=== PATIENT | male | born 1940 | race Caucasian/White ===

== ENCOUNTER 2023-01-15 14:07 | Emergency (ER) | payer OTHER, SELFPAY ==
[2023-01-15] VITALS (11 sets, daily range): BP systolic 126–143; BP diastolic 65–100; PULSE 79–209; RESP 16–20; TEMP 36.8; O2SAT 92–99
--- NOTE | 2023-01-15 14:26 | DI.RAD.S_ITS ---
PROCEDURE: XR CHEST 1V INDICATIONS: altered mental status TECHNIQUE: One view of the chest was acquired. COMPARISON: [facility], CT, CT ABDOMEN PELVIS WITHOUT CONTRAST, 07/14/2020, 15:11. [facility], CR, XR CHEST 1 VIEW, 07/12/2020, 18:32. FINDINGS: Surgical changes and devices: None. Lungs and pleura: No acute airspace opacities. No pleural effusion or pneumothorax. Mediastinum: There is a large mediastinal mass projected over the cardiac shadow. Bones and chest wall: No suspicious bony lesions. Overlying soft tissues appear unremarkable. Radiodense material is visualized projected over the esophagus. However, it is unclear whether this is superimposed on the patient or within the mediastinum. IMPRESSION: 1. Large mediastinal mass. Findings raise the suspicion for a large hiatal hernia; however a pulmonary mass or a mediastinal mass could also cause this appearance. CT of the chest with contrast is recommended to further characterize this finding. 2. Questionable radiodense material projected over the mid mediastinum. Dictated by: Kelin Shankar M.D. on 01/15/2023 at 15:14 Approved by: Kelin Shankar M.D. on 01/15/2023 at 15:17
--- NOTE | 2023-01-15 14:31 | DI.CT.S_ITS ---
PROCEDURE: CT HEAD/BRAIN WO CON INDICATIONS: Altered mental status TECHNIQUE: Noncontrast 4.5 mm thick angled axial sections acquired from the foramen magnum to the vertex, with coronal and sagittal reformats. For radiation dose reduction, the following was used: automated exposure control, adjustment of mA and/or kV according to patient size. COMPARISON: [facility], CT, CT HEAD WITHOUT CONTRAST, 07/12/2020, 17:48. FINDINGS: Image quality: Excellent. CSF spaces: Basal cisterns are patent. No extra-axial fluid collections. The ventricles are symmetric in size and shape. Brain: No intracranial bleeds or masses. There is cerebral volume loss for age, with resultant ventricular and sulcal prominence. There are periventricular and deep white matter chronic small vessel ischemic changes. There is intracranial internal carotid artery atherosclerosis. Skull and face: Calvarium and visualized facial bones appear intact, without suspicious lesions. Sinuses: Visualized sinuses and mastoids are clear. IMPRESSION: Age related microvascular atherosclerotic change is relatively prominent in this patient, also previously present 07/12/20. No intracranial hemorrhage, mass or definite superimposed acute ischemic injury. Dictated by: Celio Bishop M.D. on 01/15/2023 at 15:24 Approved by: Celio Bishop M.D. on 01/15/2023 at 15:25
[2023-01-15 14:36] LABS: Add Manual Diff / Slide Review NO; Basophils Absolute Auto 100 /uL (0-100); Basophils Percent Auto 0.5 % (0-2); Eosinophils Absolute Auto 100 /uL (0-450); Hematocrit 31.7 % (41-53); Hemoglobin 10.5 g/dL (13.5-17.5); Lymphocytes Absolute Auto 2000 /uL (1100-4500); Lymphocytes Percent Auto 19.5 % (25-40); Mean Corpuscular Hemoglobin 29.8 PG (26-34); Mean Corpuscular Volume 90.2 fL (80-100); Monocytes Absolute Auto 1100 /uL (0-900); Monocytes Percent Auto 10.6 % (3-14); Neutrophils Absolute Auto 6800 /uL (1500-7000); Neutrophils Percent Auto 68.4 % (50-75); Platelet Count 300 X10^3/uL (150-400); Red Blood Cell Count 3.51 X10^6/uL (4.5-5.9)
[2023-01-15 14:49] LABS: Alanine Aminotransferase 15 IU/L (<50); Albumin 3.5 g/dL (3.5-5.0); Albumin Globulin Ratio 0.6 (1.0-2.8); Alkaline Phosphatase 67 U/L (38-126); Aspartate Aminotransferase 29 IU/L (17-59); BUN Creatinine Ratio 23.4 (6-22); Bilirubin Total 0.8 mg/dL (0.2-1.3); Blood Urea Nitrogen 22 mg/dL (9-20); Calcium 12.2 mg/dL (8.4-10.2); Carbon Dioxide 31 mmol/L (22-32); Chloride 100 mmol/L (98-107); Estimated Glomerular Filt Rate > 60 mL/min (>60); Globulin 5.5 g/dL (1.7-4.1); Glucose 107 mg/dL (80-110); Potassium 4.7 mmol/L (3.4-5.1); Sodium 133 mmol/L (137-145)
[2023-01-15 14:50] LABS: Ethanol (ETOH) < 10 mg/dL; HEMOLYSIS 57 (0-50)
--- NOTE | 2023-01-15 15:01 | ED_ITS ---
HPI - Neuro Symptoms/Deficit General Chief Complaint: Neuro Symptoms/Deficit Stated Complaint: cough/cognitive decline/Fell T-1 Time Seen by Provider: 01/15/23 14:30 Source: patient and family Mode of arrival: Wheelchair Limitations: no limitations History of Present Illness HPI Narrative: Patient is an 82-year-old male. Arrives in the emergency department today for evaluation of cough and cognitive decline. He was with family. Apparently over the past several weeks/months the patient has had worsening cognitive decline. They have noticed this for several months however 1-1/2 months ago things seemed to get somewhat worse and then leveled off and then approximately 5 days ago the decline seem to worsen again. He now is fairly confused. He did fall yesterday without apparent injury. He takes no medications. No diagnosed medical problems. Does not see a primary care doctor. Here in the emergency department the patient has no complaints. Family states he is also had a cough for the past several days/week. No fevers. Has nonproductive cough. On Anticoagulants: No Review of Systems Review of Systems Narrative: Patient has no specific complaints Respiratory Respiratory: Reports system reviewed and no additional complaints, except as documented Neurologic Neurologic: Reports system reviewed and no additional complaints, except as documented Hematologic/Lymphatic On Anticoagulants: No Patient History Social History Smoking Status: Never smoker Smoking Status: Never smoker Exam Initial Vital Signs Initial Vital Signs: Vital Signs Temperature 98.2 F 01/15/23 14:20 Pulse Rate 79 01/15/23 14:20 Respiratory Rate 16 01/15/23 14:20 Blood Pressure 126/65 01/15/23 14:20 Pulse Oximetry 97 01/15/23 14:20 Oxygen Delivery Method Room Air 01/15/23 14:20 HENNY Head: normal to inspection and normocephalic Resp Effort & Inspection: normal respiratory effort Auscultation: clear to auscultation bilaterally Cardio Rate: regular rate Rhythm: regular rhythm GI Inspection: non-distended Neuro Other: Patient is oriented to person but does not know year or month or location. He does follow commands. Strength is equal bilateral. Extrem General: capillary refill normal Course Orders Ordered: ED Orders 01/15/23 14:25 Complete Blood Count AUTO DIFF Stat Comprehensive Metabolic Panel Stat Ethanol (ETOH) Stat 01/15/23 14:26 XR chest 1V Stat 01/15/23 14:31 CT head/brain wo con Stat 01/15/23 14:41 EKG-12 Lead Stat 01/15/23 14:45 Consult to [employer] - [employer] Operator Stat 01/15/23 15:41 CT chest w con Stat 01/15/23 16:30 Urine Culture Stat Urine Microscopic Stat Discontinued Medications Lorazepam (Lorazepam 0.5 Mg Tablet) 0.5 mg PO NOW ONE Stop: 01/15/23 16:54 Last Admin: 01/15/23 17:02 Dose: 0.5 mg Documented By: ORTIZ Vital Signs Vital signs: Vital Signs - 8 hr 01/15/23 14:20 01/15/23 14:36 01/15/23 14:37 Temperature 98.2 F Pulse Rate 79 95 H Respiratory Rate 16 20 Blood Pressure 126/65 129/72 Pulse Oximetry 97 94 Oxygen Delivery Method Room Air Room Air 01/15/23 14:37 01/15/23 15:09 01/15/23 15:30 Temperature Pulse Rate 80 98 H 110 H Respiratory Rate Blood Pressure Pulse Oximetry 97 94 99 Oxygen Delivery Method 01/15/23 15:48 01/15/23 16:01 01/15/23 16:02 Temperature Pulse Rate 156 H 119 H 108 H Respiratory Rate Blood Pressure Pulse Oximetry 99 Oxygen Delivery Method Room Air 01/15/23 16:02 01/15/23 16:10 01/15/23 16:10 Temperature Pulse Rate 162 H 120 H Respiratory Rate Blood Pressure 139/89 133/84 Pulse Oximetry Oxygen Delivery Method 01/15/23 16:30 01/15/23 16:31 01/15/23 16:31 Temperature Pulse Rate 119 H 209 H Respiratory Rate Blood Pressure 143/100 H Pulse Oximetry 92 95 Oxygen Delivery Method Room Air MDM - Neuro Symptoms/Deficit Lab Data Attestation: I reviewed the patient's lab results. 01/15/23 14:25 01/15/23 14:25 Labs: Lab Results 01/15/23 01/15/23 Range/Units 14:25 16:30 WBC 10.0 (4.5-11.0) X10^3/uL RBC 3.51 L (4.5-5.9) X10^6/uL Hgb 10.5 L (13.5-17.5) g/dL Hct 31.7 L (41-53) % MCV 90.2 (80-100) fL MCH 29.8 (26-34) PG MCHC 33.0 (30-36) % RDW 14.0 (11.6-14.8) % Plt Count 300 (150-400) X10^3/uL Neut % (Auto) 68.4 (50-75) % Lymph % (Auto) 19.5 L (25-40) % [place]lier % (Auto) 10.6 (3-14) % Eos % (Auto) 1.0 L (2-4) % Baso % (Auto) 0.5 (0-2) % Neut # (Auto) 6800 (6087-4972) /uL Lymph # (Auto) 2000 (5998-8006) /uL Collier # (Auto) 1100 H (0-900) /uL Eos # (Auto) 100 (0-450) /uL Baso # (Auto) 100 (0-100) /uL Sodium 133 L (137-145) mmol/L Potassium 4.7 (3.4-5.1) mmol/L Chloride 100 (98-107) mmol/L Carbon Dioxide 31 (22-32) mmol/L BUN 22 H (9-20) mg/dL Creatinine 0.94 (0.66-1.25) mg/dL Estimated GFR > 60 (>60) mL/min BUN/Creatinine Ratio 23.4 H (6-22) Glucose 107 (80-110) mg/dL Calcium 12.2 H (8.4-10.2) mg/dL Total Bilirubin 0.8 (0.2-1.3) mg/dL AST 29 (17-59) IU/L ALT 15 (<50) IU/L Alkaline Phosphatase 67 (38-126) U/L Total Protein 9.0 H (6.3-8.2) g/dL Albumin 3.5 (3.5-5.0) g/dL Globulin 5.5 H (1.7-4.1) g/dL Albumin/Globulin Ratio 0.6 L (1.0-2.8) Urine RBC 0-1/hpf (0-5/HPF) Urine WBC 0-1/hpf (0-5/HPF) Ur Squamous Epith Cells None seen (0-5/HPF) Amorphous Sediment 1+ Urine Bacteria Few (2-10) H (None) Ethyl Alcohol < 10 ( - 10) mg/dL Urine Dip Bedside Urine Glucose Negative Bedside Urine Bilirubin - Negative Urine Specific [place] 1.015 Bedside Urine Occult Blood +/- Bedside Urine pH 6.5 Bedside Urine Protein - Negative Bedside Urine Urobilinogen - Negative Bedside Urine Nitrite - Negative Bedside Urine Leukocytes - Negative Esterase Imaging Data Chest x-ray: Radiologist's Impression: PROCEDURE: XR CHEST 1V INDICATIONS: altered mental status TECHNIQUE: One view of the chest was acquired. COMPARISON: [facility], CT, CT ABDOMEN PELVIS WITHOUT CONTRAST, 07/14/2020, 15:11. [facility], CR, XR CHEST 1 VIEW, 07/12/2020, 18:32. FINDINGS: Surgical changes and devices: None. Lungs and pleura: No acute airspace opacities. No pleural effusion or pneumothorax. Mediastinum: There is a large mediastinal mass projected over the cardiac shadow. Bones and chest wall: No suspicious bony lesions. Overlying soft tissues appear unremarkable. Radiodense material is visualized projected over the esophagus. However, it is unclear whether this is superimposed on the patient or within the mediastinum. IMPRESSION: 1. Large mediastinal mass. Findings raise the suspicion for a large hiatal hernia; however a pulmonary mass or a mediastinal mass could also cause this appearance. CT of the chest with contrast is recommended to further characterize this finding. 2. Questionable radiodense material projected over the mid mediastinum CT scan - head: Radiologist's Impression: PROCEDURE: CT HEAD/BRAIN WO CON INDICATIONS: Altered mental status TECHNIQUE: Noncontrast 4.5 mm thick angled axial sections acquired from the foramen magnum to the vertex, with coronal and sagittal reformats. For radiation dose reduction, the following was used: automated exposure control, adjustment of mA and/or kV according to patient size. COMPARISON: [facility], CT, CT HEAD WITHOUT CONTRAST, 07/12/2020, 17:48. FINDINGS: Image quality: Excellent. CSF spaces: Basal cisterns are patent. No extra-axial fluid collections. The ventricles are symmetric in size and shape. Brain: No intracranial bleeds or masses. There is cerebral volume loss for age, with resultant ventricular and sulcal prominence. There are periventricular and deep white matter chronic small vessel ischemic changes. There is intracranial internal carotid artery atherosclerosis. Skull and face: Calvarium and visualized facial bones appear intact, without suspicious lesions. Sinuses: Visualized sinuses and mastoids are clear. IMPRESSION: Age related microvascular atherosclerotic change is relatively prominent in this patient, also previously present 07/12/20. No intracranial hemorrhage, mass or definite superimposed acute ischemic injury. CT scan - chest: Radiologist's Impression: PROCEDURE: CT CHEST W CON INDICATIONS: Mediastinal mass seen on chest x-ray TECHNIQUE: After the administration of intravenous contrast, 5 mm thick sections acquired from the pulmonary apices to the posterior costophrenic angles. 1 mm axial lung, 5 mm thick coronal and sagittal reformats and 7 mm axial MIP were acquired. For radiation dose reduction, the following was used: automated exposure control, adjustment of mA and/or kV according to patient size. COMPARISON: None. FINDINGS: Image quality: Diagnostic. Lungs and pleura: There is mild centrilobular emphysema with an apical predominance. No acute airspace opacities or pulmonary nodules. No pleural effusion or pneumothorax. Mediastinum: There is a heterogeneously enhancing 9.3 x 11.9 by 11.6 cm mass within the posterior right aspect of the mediastinum. This corresponds with the questionable mass visualized on the chest film from earlier today. There is an enlarged pretracheal lymph node and a right hilar lymph node which measures 1.4 cm in diameter. No left hilar adenopathy. Heart size is normal. No pericardial effusion. Thoracic aorta and central pulmonary arteries are normal in size. Esophagus is normal in caliber. No hiatal hernia. Bones and chest wall: No suspicious bony lesions. No vertebral body compression fractures. No axillary or supraclavicular adenopathy by size criteria. No thyroid nodules which require sonographic follow up, per consensus guidelines. Abdomen: Visualized upper abdominal solid organs appear normal. Upper abdominal bowel loops are normal in caliber. IMPRESSION: 1. Large right posterior mediastinal mass as above. If clinically indicated, this lesion is amenable to CT-guided percutaneous biopsy. 2. 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 3. No acute pulmonary findings. ECG Data Attestation: I personally reviewed and interpreted this ECG as follows: Interpretation: Sinus rhythm Ventricular rate 89 Normal axis Artifact noted in lateral leads No ST T wave changes Occasional PVC MDM Narrative Medical decision making narrative: No respiratory distress. Did have some episodes of what appeared to be AFib with a heart rate in the 150s however this resolved to a sinus rhythm less than 100 very quickly. We would an Advil to catch this on any EKG. The CT scan of the chest does show a mediastinal mass. This could be contributing to his cough or there was no other signs of infection. I did discuss this with the family at bedside. He is going to need follow-up with a primary care doctor for further evaluation of this. Unfortunately I do not have a diagnosis that would necessitate in the admission to the hospital. There was no easily identifiable/reversible cause for his confusion. Social work evaluated the patient as well. The patient would like to go home. I do know that there is some concern about the family with taking the patient home and his safety however there is not much more that we can do out of the emergency department specifically on Wednesday evening. They were given a number of resources to help with establishing a primary care doctor. Discharge Plan Departure Patient Disposition: Home Clinical Impression: Mass of mediastinum, Confusion Activity Restrictions/Additional Instructions: It is important that Silvano make contact with the primary care doctor because there is going to need follow-up with the incidental finding of the mass noted in his chest today. It is also going to be important to help establish follow on care and potentially other living situations. Please use the contact information that you were given today and other resources to help with this. Referrals: Charles Perkins MD [Primary Care Provider] - Stand Alone Forms: Patient Portal/API
--- NOTE | 2023-01-15 15:41 | DI.CT.S_ITS ---
PROCEDURE: CT CHEST W CON INDICATIONS: Mediastinal mass seen on chest x-ray TECHNIQUE: After the administration of intravenous contrast, 5 mm thick sections acquired from the pulmonary apices to the posterior costophrenic angles. 1 mm axial lung, 5 mm thick coronal and sagittal reformats and 7 mm axial MIP were acquired. For radiation dose reduction, the following was used: automated exposure control, adjustment of mA and/or kV according to patient size. COMPARISON: None. FINDINGS: Image quality: Diagnostic. Lungs and pleura: There is mild centrilobular emphysema with an apical predominance. No acute airspace opacities or pulmonary nodules. No pleural effusion or pneumothorax. Mediastinum: There is a heterogeneously enhancing 9.3 x 11.9 by 11.6 cm mass within the posterior right aspect of the mediastinum. This corresponds with the questionable mass visualized on the chest film from earlier today. There is an enlarged pretracheal lymph node and a right hilar lymph node which measures 1.4 cm in diameter. No left hilar adenopathy. Heart size is normal. No pericardial effusion. Thoracic aorta and central pulmonary arteries are normal in size. Esophagus is normal in caliber. No hiatal hernia. Bones and chest wall: No suspicious bony lesions. No vertebral body compression fractures. No axillary or supraclavicular adenopathy by size criteria. No thyroid nodules which require sonographic follow up, per consensus guidelines. Abdomen: Visualized upper abdominal solid organs appear normal. Upper abdominal bowel loops are normal in caliber. IMPRESSION: 1. Large right posterior mediastinal mass as above. If clinically indicated, this lesion is amenable to CT-guided percutaneous biopsy. 2. 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 3. No acute pulmonary findings. Dictated by: Kelin Shankar M.D. on 01/15/2023 at 16:25 Approved by: Kelin Shankar M.D. on 01/15/2023 at 16:30
[2023-01-15 16:59] LABS: RBC Urine 0-1/HPF (0-5/HPF); Squamous Epithelial Cell Urine None Seen (0-5/HPF); WBC Urine 0-1/HPF (0-5/HPF)
[2023-01-15 17:00] LABS: Amorphous Sediment Urine 1+; Bacteria Urine Few (2-10)
[2023-01-15] MEDS: LORazepam 0.5 MG TABLET PO (17:02)
--- NOTE | 2023-01-15 17:11 | CM.SWNOTE ---
ED MISSILE TRACKING TECHNICIAN Note Patient is 82 y/o male who presents to ED with life partner and her daughter due to concern for patient's confusion, cough and recent GLF. It is reported that patient has Dementia. Patient has not had PCP f/u for several years and does not have current PCP. Patient has Medicare and [employer] insurance. Patient does not present as A/O, patient resides with life partner on [facility]. Family friend reports concern for patient's living situation. Patient can ambulate independently. Per ED medical evaluation, patient is diagnosed with a mediastinum mass and requires outpatient PCP f/u, patient does not meet criteria for admission. MISSILE TRACKING TECHNICIAN briefly speaks with family friend, MISSILE TRACKING TECHNICIAN recommends reaching out to the [employer], provides contact information, MISSILE TRACKING TECHNICIAN encourages family friend to assist patient in establishing care with PCP. MISSILE TRACKING TECHNICIAN provides senior resource guide, [facility] Senior resources, and information to seek care givers. MISSILE TRACKING TECHNICIAN speaks with Abhinav with [facility] and requests a f/u with patient's family. Abhinav states he will [facility] to assist with establishing care. Patient requests to leave ED. Plan: patient to d/c to home with family/friends, Patient to seek PCP and f/u with outpatient and family to seek higher level of care with [facility] and [facility] f[facility]. DEN Cesar
== END 2023-01-15 17:32 | disposition home or self-care (01) ==
PROVIDERS: Emergency Provider Emergency Medicine; PCP Surgery
DX: R41.0 Disorientation, unspecified (principal); J98.59 Other diseases of mediastinum, not elsewhere classified
CPT/HCPCS: 36415; 70450; 71045; 71260; 80053; 80320; 81003; 81015; 85025; 87086; 93005; 93010; 99284; Q9967